=== PATIENT | male | born 1985 | race American Indian/Alaskan Native ===

== ENCOUNTER 2019-01-14 17:09 | Emergency (ER) | payer OTHER ==
--- NOTE | 2019-01-14 21:23 | XRay Report ---
PROCEDURE: XR CHEST ROUTINE 2V TECHNIQUE: PA and lateral chest radiographs were obtained. HISTORY: Chest Pain COMPARISONS: None. FINDINGS: Heart: Normal. Mediastinum/Vessels: Normal. Lungs/Pleural space: Normal. Bony thorax: No acute osseous abnormality. IMPRESSION: Normal examination. This document is electronically signed by Brodie Rincon MD., January 14 2019 09:21:22 PM ET
[2019-01-14] MEDS ORDERED: IBUPROFEN PO ONE (21:53)
[2019-01-14] MEDS ORDERED: NORVASC PO ONE (22:07)
--- NOTE | 2019-01-14 22:11 | Emergency Department Report ---
ED Chest Pain HPI - General Chief Complaint: Chest Pain Stated Complaint: HYPERTENSION Time Seen by Provider: 01/14/19 21:52 Source: patient Mode of arrival: Ambulatory Limitations: No Limitations - History of Present Illness Initial Comments: Patient 33-year-old -[place] male with a history of hypertension hypertension controlled pain patient painful last month and patient presents today for chest wall pain is exacerbated by deep breathing and movement. And overhead reaching, patient denies shortness of breath is no dizziness no headache no nausea vomiting no back pain no diaphoresis negative intolerance patient denies cough or fever. MD Complaint: chest pain Onset/Timin -: days(s) Onset: during exertion Pain Location: left chest Pain Radiation: none Severity: moderate Severity scale (0 -10): 4 Quality: sharp Consistency: intermittent Improves With: rest Worsens With: exertion, inspiration, palpation, movement Treatments Prior to Arrival: none - Related Data Previous Rx's Medication Instructions Recorded Last Taken Type Ibuprofen 800 mg PO TID #30 tablet 01/14/19 Unknown Rx amLODIPine [Norvasc] 10 mg PO DAILY #30 tab 01/14/19 Unknown Rx Allergies Allergy/AdvReac Type Severity Reaction Status Date / Time No Known Allergies Allergy Verified 01/14/19 19:44 Heart Score - HEART Score History: Slightly suspicious EKG: Normal Age: < 45 Risk factors: No known risk factors Troponin: < normal limit HEART Score: 0 ED Review of Systems ROS: Stated complaint: HYPERTENSION Other details as noted in HPI Constitutional: denies: chills, fever Eyes: denies: eye pain, eye discharge, vision change ENT: denies: ear pain, throat pain Respiratory: denies: cough, shortness of breath, wheezing Cardiovascular: chest pain. denies: palpitations, syncope, paroxysmal nocturnal dyspnea Endocrine: no symptoms reported Gastrointestinal: denies: abdominal pain, nausea, vomiting, diarrhea, constipation, hematemesis (with) Genitourinary: denies: urgency, dysuria Musculoskeletal: denies: back pain, joint swelling, arthralgia Skin: denies: rash, lesions Neurological: denies: headache, weakness, paresthesias Psychiatric: denies: anxiety, depression Hematological/Lymphatic: denies: easy bleeding, easy bruising ED Past Medical Hx - Past Medical History Hx Hypertension: Yes - Surgical History Past Surgical History?: No - Social History Smoking Status: Current Every Day Smoker Substance Use Type: None - Medications Home Medications: Home Medications Medication Instructions Recorded Confirmed Last Taken Type Ibuprofen 800 mg PO TID #30 tablet 01/14/19 Unknown Rx amLODIPine [Norvasc] 10 mg PO DAILY #30 tab 01/14/19 Unknown Rx ED Physical Exam - General Limitations: No Limitations (nose mouth and) General appearance: alert, in no apparent distress - Head Head exam: Present: atraumatic, normocephalic - Eye Eye exam: Present: normal appearance, PERRL, EOMI Pupils: Present: normal accommodation - ENT ENT exam: Present: normal exam, mucous membranes moist - Neck Neck exam: Present: normal inspection - Respiratory Respiratory exam: Present: normal lung sounds bilaterally, chest wall tenderness. Absent: respiratory distress, wheezes, stridor, accessory muscle use, decreased breath sounds, prolonged expiratory - Cardiovascular Cardiovascular Exam: Present: regular rate, normal rhythm. Absent: normal heart sounds, systolic murmur, diastolic murmur, rubs, gallop - GI/Abdominal GI/Abdominal exam: Present: soft, normal bowel sounds - Rectal Rectal exam: Present: deferred (on his) - exam: Present: normal inspection - Extremities Exam Extremities exam: Present: normal inspection - Back Exam Back exam: Present: normal inspection - Neurological Exam Neurological exam: Present: alert, oriented X3, CN II-XII intact, normal gait, reflexes normal - Psychiatric Psychiatric exam: Present: normal affect, normal mood - Skin Skin exam: Present: warm, dry, intact, normal color. Absent: rash ED Course Vital Signs 01/14/19 01/14/19 17:23 21:18 Temperature 98.3 F Pulse Rate 70 75 Respiratory 20 Rate Blood Pressure 162/117 171/124 [Right] O2 Sat by Pulse 99 Oximetry PRASAD score - Prasad Score Age > 65: (0) No Aspirin use within the Past 7 Days: (0) No 3 or more CAD Risk Factors: (0) No 2 or more Angina events in past 24 hrs: (0) No Known CAD with more than 50% Stenosis: (0) No Elevated Cardiac Markers: (0) No ST Deviation Greater than 0.5mm: (0) No PRASAD Score: 0 ED Medical Decision Making - EKG Data EKG shows normal: sinus rhythm, QRS complexes Rate: normal - EKG Data When compared to previous EKG there are: previous EKG unavailable Interpretation: normal EKG (EKG interp by ED attending NSR no ST elevation , early repole. ), nonspecific ST-T wave eagle (early repole ) - Radiology Data Radiology results: report reviewed, image reviewed FINDINGS: Heart: Normal. Mediastinum/Vessels: Normal. Lungs/Pleural space: Normal. Bony thorax: No acute osseous abnormality. IMPRESSION: Normal examination. This document is electronically signed by Brodie Cardoza MD., January 14 2019 09:21:22 PM ET Transcribed By: CO Dictated By: BRODIE CARDOZA MD Electronically Authenticated By: BRODIE CARDOZA MD Signed Date/Time: 01/14/192122 DD/ 19 TD/TT: 01/14/192020 - Medical Decision Making EKG NSR early repole, cxr: normal trop <0.01, heart score is 0, PRASAD score is 0, pain is chest wall only exacerbated by movement and inspiration. pt does have hx of htn, is out of medication plan: refill medications as requested, pt will follow up with pcp in 2-3 days. pt denies dizziness no light headedness no sob no n/v no back pain, will dc to home with ibuprofen and amlodipine pt dc'd to home in stable condtion at this time. Critical care attestation.: If time is entered above; I have spent that time in minutes in the direct care of this critically ill patient, excluding procedure time. ED Disposition Clinical Impression: Chest wall pain, Medication refill Disposition: DC-01 TO HOME OR SELFCARE Is pt being admited?: No Does the pt Need Aspirin: No Condition: Stable Instructions: Chest Pain (ED), Costochondritis (ED) Prescriptions: Ibuprofen 800 mg PO TID #30 tablet amLODIPine [Norvasc] 10 mg PO DAILY #30 tab Referrals: ANJU TORRES MD [Primary Care Provider] - 3-5 Days Forms: Work/School Release Form(ED) Time of Disposition: 22:21
[2019-01-14 22:36] VITALS: BP 170/120
== END 2019-01-14 22:36 | disposition home or self-care (01) ==
LOC: ED 17:09
DX: R07.89 Other chest pain (principal); I10 Essential (primary) hypertension; F17.200 Nicotine dependence, unspecified, uncomplicated; Z76.0 Encounter for issue of repeat prescription
CPT/HCPCS: 36415; 71046; 84484; 93005; 93010

== ENCOUNTER 2019-04-11 14:44 | Emergency (ER) | payer SELFPAY ==
--- NOTE | 2019-04-11 14:49 | Emergency Department Report ---
Blank Doc - Documentation Documentation: This is a 33-year-old male that presents with left wrist pain s/p fall. This initial assessment/diagnostic orders/clinical plan/treatment(s) is/are subject to change based on patient's health status, clinical progression and re- assessment by fellow clinical providers in the ED. Further treatment and workup at subsequent clinical providers discretion. Patient/guardians urged not to elope from the ED as their condition may be serious if not clinically assessed and managed. Initial orders include: 1- Patient sent to [facility] for further evaluation and treatment 2- xray
[2019-04-11 14:50] VITALS: BP 164/92
--- NOTE | 2019-04-11 15:59 | XRay Report ---
PROCEDURE: XR WRIST 3+V LT TECHNIQUE: 3 views of the left wrist HISTORY: wrist pain COMPARISONS: None. FINDINGS: There is normal alignment without acute fracture or dislocation. The joint spaces are preserved. The overlying soft tissues are intact. IMPRESSION: No acute bony abnormality of the left wrist. This document is electronically signed by Concepcion Monge MD., April 11 2019 04:57:27 PM ET
--- NOTE | 2019-04-11 16:05 | Emergency Department Report ---
Upper Extremity - [facility] Chief Complaint: Extremity Injury, Upper Stated Complaint: (L) WRIST INJURY/PAIN Time Seen by Provider: 04/11/19 14:48 Upper Extremity: Left Forearm Occurred When: 1 Day Mechanism: Fall Severity: mild Symptoms: Yes Pain with Movement, No Deformity, No Limited Range of Movement, No Numbness, No Weakness, No Swelling, No Laceration or Abrasion Other History: Mr. Person is a 33 yo male who injured with left wrist and forearm after a fall at work yesterday. Mild pain. No deformity. Feels a vibration with flexion and extension at the wrist. ED Review of Systems ROS: Stated complaint: (L) WRIST INJURY/PAIN Other details as noted in HPI Constitutional: denies: fever, malaise Neurological: denies: numbness, paresthesias ED Past Medical Hx - Past Medical History Previous Medical History?: Yes Hx Hypertension: Yes - Surgical History Past Surgical History?: No - Social History Smoking Status: Never Smoker Substance Use Type: None - Medications Home Medications: Home Medications Medication Instructions Recorded Confirmed Last Taken Type Ibuprofen [Ibuprofen 800] 800 mg PO TID #30 tablet 01/14/19 Unknown Rx amLODIPine [Norvasc] 10 mg PO DAILY #30 tab 01/14/19 Unknown Rx Upper Extremity Exam - Exam General: Vital signs noted. No distress. Alert and acting appropriately. Arm Exam: No Arm/Humerus Tenderness, No Arm Deformity Elbow: No Elbow Tenderness, No Normal Range of Motion in Elbow, No Elbow Deformity Forearm: No Forearm Tenderness, No Forearm Deformity, No Pain with Pronation, No Pain with Supination Wrist: Yes Normal ROM in Wrist, No Wrist Tenderness, No Wrist Deformity, No Snuffbox Tenderness, No Pain with Axial Thumb Compression Hand: No Hand Tenderness, No Hand Deformity, No Digit Tenderness ED Course Vital Signs 04/11/19 14:48 Temperature 98.7 F Pulse Rate 101 H Respiratory 16 Rate Blood Pressure 164/92 O2 Sat by Pulse 98 Oximetry ED Medical Decision Making - Medical Decision Making Left forearm left wrist sprain. Patient is using the extremity fluidly without discomfort. I reviewed left wrist radiographs personally. 3 images obtained. No fracture or subluxationor soft tissue swelling Recommended rest and ice [id number] NSAIDs Critical care attestation.: If time is entered above; I have spent that time in minutes in the direct care of this critically ill patient, excluding procedure time. ED Disposition Clinical Impression: Left wrist sprain, Contusion of left forearm Disposition: TO HOME OR SELFCARE Is pt being admited?: No Does the pt Need Aspirin: No Condition: Stable Instructions: Wrist Sprain (ED), Wrist Injury (ED) Referrals: SANDRA GREWAL MD [Staff Physician] - 3-5 Days
== END 2019-04-11 16:20 | disposition home or self-care (01) ==
LOC: ED 14:44
DX: S63.502A Unspecified sprain of left wrist, initial encounter (principal); S50.12XA Contusion of left forearm, initial encounter; I10 Essential (primary) hypertension; W19.XXXA Unspecified fall, initial encounter; Y93.89 Activity, other specified; Y92.69 Other specified industrial and construction area as the place of occurrence of the external cause; Y99.8 Other external cause status

== ENCOUNTER 2019-05-23 13:18 | Emergency (ER) | payer SELFPAY ==
[2019-05-23 13:55] VITALS: BP 154/87
--- NOTE | 2019-05-23 15:05 | Emergency Department Report ---
ED General Adult HPI - General Chief complaint: Extremity Problem,Nontraumatic Stated complaint: LEG/FEET SWELLING/PAIN Time Seen by Provider: 05/23/19 15:02 Source: patient Mode of arrival: Ambulatory Limitations: No Limitations - History of Present Illness Initial comments: 33 yo comes to er co leg swelling. no sob or cp. no fever or chills. Has been increasing over 2 weeks. - Related Data Allergies Allergy/AdvReac Type Severity Reaction Status Date / Time No Known Allergies Allergy Verified 04/11/19 14:48 ED Review of Systems ROS: Stated complaint: LEG/FEET SWELLING/PAIN Other details as noted in HPI Comment: All other systems reviewed and negative ED Past Medical Hx - Past Medical History Previous Medical History?: Yes Hx Hypertension: Yes - Surgical History Past Surgical History?: No - Family History Family history: no significant - Social History Smoking Status: Current Every Day Smoker Substance Use Type: None ED Physical Exam - General Limitations: No Limitations General appearance: alert - Head Head exam: Present: normocephalic - Eye Eye exam: Present: normal appearance, PERRL - ENT ENT exam: Present: mucous membranes moist - Neck Neck exam: Present: normal inspection - Respiratory Respiratory exam: Present: normal lung sounds bilaterally - Cardiovascular Cardiovascular Exam: Present: regular rate - GI/Abdominal GI/Abdominal exam: Present: soft - Rectal Rectal exam: Present: deferred - Extremities Exam Extremities exam: Present: normal inspection, normal capillary refill, pedal edema (mild) - Back Exam Back exam: Present: normal inspection - Neurological Exam Neurological exam: Present: alert, oriented X3 - Psychiatric Psychiatric exam: Present: normal affect, normal mood - Skin Skin exam: Present: warm, dry ED Course Vital Signs 05/23/19 13:54 Temperature 97.8 F Pulse Rate 85 Respiratory 18 Rate Blood Pressure 154/87 O2 Sat by Pulse 98 Oximetry ED Medical Decision Making - Lab Data Result diagrams: 05/23/19 15:20 - Radiology Data Radiology results: report reviewed, image reviewed - Medical Decision Making Labs 05/23/19 15:20 Sodium 144 Potassium 3.9 Chloride 106.5 Carbon Dioxide 28 Anion Gap 13 BUN 8 L Creatinine 1.0 Estimated GFR > 60 BUN/Creatinine Ratio 8 Glucose 81 Calcium 8.9 Total Bilirubin 0.40 AST 32 ALT 26 Alkaline Phosphatase 54 Troponin T < 0.010 NT-Pro-B Natriuret Pep 50.52 Total Protein 6.3 Albumin 3.9 Albumin/Globulin Ratio 1.6 Vital Signs 05/23/19 13:54 Temperature 97.8 F Pulse Rate 85 Respiratory 18 Rate Blood Pressure 154/87 O2 Sat by Pulse 98 Oximetry Labs 05/23/19 15:20 Sodium 144 Potassium 3.9 Chloride 106.5 Carbon Dioxide 28 Anion Gap 13 BUN 8 L Creatinine 1.0 Estimated GFR > 60 BUN/Creatinine Ratio 8 Glucose 81 Calcium 8.9 Total Bilirubin 0.40 Direct Bilirubin < 0.2 Indirect Bilirubin 0.2 AST 32 ALT 26 Alkaline Phosphatase 54 Troponin T < 0.010 NT-Pro-B Natriuret Pep 50.52 Total Protein 6.3 Albumin 3.9 Albumin/Globulin Ratio 1.6 labs noted lungs clear no jvd no sob no cp pt reports starting norvasc recently and since then he has had swelling pt educated on edema dc home with dc plan of care and pcp follow up - Differential Diagnosis ro chf Critical care attestation.: If time is entered above; I have spent that time in minutes in the direct care of this critically ill patient, excluding procedure time. ED Disposition Clinical Impression: Side effect of medication, Peripheral edema Disposition: PAT REG,NO TRIAGE Is pt being admited?: No Does the pt Need Aspirin: No Condition: Stable Instructions: Hypertension (ED) Additional Instructions: STOP NORVASC START NEW MED THAT I GAVE YOU TODAY SEE PCP IN 1 WEEK MONITOR BLOOD PRESSURE [facility]: [facility] [Primary Care Provider[facility] - 3-5 Days LILIANA KENNEY MD [Staff Physician] - 3-5 Days Time of Disposition: 16:24
--- NOTE | 2019-05-23 16:13 | XRay Report ---
CHEST 2 VIEWS INDICATION / CLINICAL INFORMATION: sob. Dyspnea. COMPARISON: None available. FINDINGS: SUPPORT DEVICES: None. HEART / MEDIASTINUM: No significant abnormality. LUNGS / PLEURA: No significant pulmonary or pleural abnormality. No pneumothorax. ADDITIONAL FINDINGS: No significant additional findings. IMPRESSION: 1. No acute findings. Signer Name: Lexx Gonzales MD Signed: 05/23/2019 4:08 PM Workstation Name: [id number]
[2019-05-23 16:16] LABS: Alanine Aminotransferase 26 units/L (7-56); Albumin 3.9 g/dL (3.9-5); BUN/Creatinine Ratio 8; Blood Urea Nitrogen 8 mg/dL (9-20); Calcium 8.9 mg/dL (8.4-10.2); Hemolysis Index 12
[2019-05-23] MEDS ORDERED: LASIX PO ONE (16:23)
[2019-05-23 16:36] LABS: Bilirubin,Direct < 0.2 mg/dL (0-0.2)
== END 2019-05-23 16:43 | disposition left against medical advice (07) ==
LOC: ED 13:18
DX: R60.0 Localized edema (principal); I10 Essential (primary) hypertension; F17.200 Nicotine dependence, unspecified, uncomplicated
CPT/HCPCS: 36415; 71046; 80048; 80076; 83880; 84484; 99284